=== PATIENT | male | born 1945 | race Caucasian/White ===

== ENCOUNTER → 2017-03-11 | Outpatient (CLI) | payer OTHER | LOC: FCPNEURO 21:00 | PROVIDERS: ATTEND Psychiatry & Neurology Sleep Medicine | DX: G47.31 Primary central sleep apnea (principal); G47.33 Obstructive sleep apnea (adult) (pediatric) ==

== ENCOUNTER → 2017-04-29 | Outpatient (CLI) | payer OTHER | LOC: BHFA 11:30 | PROVIDERS: ATTEND Internal Medicine Cardiovascular Disease | DX: I50.9 Heart failure, unspecified (principal) ==

== ENCOUNTER → 2018-02-19 | Outpatient (CLI) | payer OTHER | LOC: BMCIMAGING 11:37 | PROVIDERS: ATTEND Family Medicine | DX: M18.11 Unilateral primary osteoarthritis of first carpometacarpal joint, right hand (principal) ==

== ENCOUNTER 2018-08-28 12:06 | Day surgery (SDC) | payer OTHER ==
[2018-08-28] MEDS ORDERED: ceFAZolin 2 GM/DEXTROSE 100 ML IV ONE (12:16)
[2018-08-28] MEDS ORDERED: LR 1,000 ML IV ONE (12:17)
--- NOTE | 2018-08-28 12:53 | PDHPUP ---
History & Physical Update H&P update statement: This history and physical update is based on an assessment of the patient which was completed after admission or registration (within 24 hours), but prior to the surgery/procedure. H&P update: H&P reviewed & patient examined, no change in patient's condition since H&P completed
[2018-08-28] MEDS ORDERED: BUPIVACAINE 0.25% 30 ML SDV ONE (13:37)
[2018-08-28] MEDS ORDERED: BUPIVACAINE 0.5% 30 ML SDV ONE ×2 (13:39→13:49)
--- NOTE | 2018-08-28 14:23 | PDANEPAE ---
ANE History of Present Illness here for WLE melanoma ANE Past Medical History - Cardiovascular History Hx Hypertension: No Hx Arrhythmias: No Hx Chest Pain: No Hx Coronary Artery / Peripheral Vascular Disease: No Hx CHF / Valvular Disease: No Hx Palpitations: No - Pulmonary History Hx COPD: No Hx Asthma/Reactive Airway Disease: No Hx Recent Upper Respiratory Infection: No Hx Oxygen in Use at Home: No Hx Sleep Apnea: Yes Sleep Apnea Screening Result - Last Documented: Positive - Neurologic History Hx Cerebrovascular Accident: No Hx Seizures: No Hx Dementia: No - Endocrine History Hx Diabetes: No - Renal History Hx Renal Disorders: No - Liver History Hx Hepatic Disorders: No - Neurological & Psychiatric Hx Hx Neurological and Psychiatric Disorders: Yes Neurological / Psychiatric History Comment: NEUROPATHY - Cancer History Hx Cancer: Yes Cancer History Comment: SKIN CA - Congenital Disorder History Hx Congenital Disorders: No - GI History Hx Gastrointestinal Disorders: No - Other Health History Other Health History: NEG - Chronic Pain History Chronic Pain: Yes (SCOLIOSIS W/BACK PAIN,HANDS,LEGS) - Surgical History Prior Surgeries: MOHS X2. KNEE L ACL ANE Review of Systems Review of systems is: negative Review of Systems: - Exercise capacity Exercise capacity: >=4 METS METS (RN): 4 METS ANE Patient History - Allergies Allergies/Adverse Reactions: No Known Allergies Allergy (Unverified 08/24/18 13:51) - Home Medications Home Medications: Bupropion HCl 08/26/18 [Last Taken 08/28/18 07:00] Gabapentin 08/26/18 [Last Taken 08/27/18] Ibuprofen 08/26/18 [Last Taken 08/25/18] Multivitamin 08/26/18 [Last Taken 08/25/18] Propranolol HCl 08/26/18 [Last Taken 08/27/18] Zubsolv 0.7-0.18 mg Tablet Sl 08/26/18 [Last Taken 08/26/18] - NPO status NPO Status: no food or drink >8 hours NPO Since - Liquids (Date): 08/28/18 NPO Since - Liquids (Time): 11:00 NPO Since - Solids (Date): 08/28/18 NPO Since - Solids (Time): 05:00 - Smoking Hx Smoking Status: Never smoked - Family Anes Hx Family Hx Anesthesia Complications: NEG ANE Labs/Vital Signs - Vital Signs Vital Signs: reviewed preoperatively; see RN documention for details Blood Pressure: 119/70 Heart Rate: 57 Respiratory Rate: 16 O2 Sat (%): 97 Height: 172.72 cm Weight: 72.575 kg ANE Physical Exam - Airway Neck exam: FROM Mallampati Score: Class 1 - Pulmonary Pulmonary: no respiratory distress - Cardiovascular Cardiovascular: regular rate and rhythym - ASA Status ASA Status: II
[2018-08-28] MEDS ORDERED: MIDAZOLAM 2 MG/2 ML VIAL ONE (15:09)
[2018-08-28] MEDS ORDERED: PROPOFOL/EMULSION 500 MG/50 ML BOTTLE IV ONE (15:46)
[2018-08-28] MEDS ORDERED: METHYLENE BLUE 0.5% 50 MG/10 ML AMP ONE (15:55)
[2018-08-28] MEDS ORDERED: fentaNYL 100 MCG/2 ML INJ ONE (16:03)
[2018-08-28] MEDS ORDERED: LR 500 ML IV PRN (16:13)
[2018-08-28] MEDS ORDERED: NS 500 ML IV PRN (16:13)
[2018-08-28] MEDS ORDERED: HYDROCODONE/APAP 5/325 TAB PO PRN (16:13)
[2018-08-28] MEDS ORDERED: fentaNYL 100 MCG/2 ML INJ IVP PRN (16:13)
[2018-08-28] MEDS ORDERED: DEXAMETHASONE 4 MG/ML VIAL IVP PRN (16:13)
[2018-08-28] MEDS ORDERED: HYDROmorphONE/DILAUDID 2 MG/ML INJ IVP PRN (16:13)
[2018-08-28] MEDS ORDERED: ALBUTEROL 3 ML DEYVIAL IH PRN (16:13)
[2018-08-28] MEDS ORDERED: ONDANSETRON 4 MG/2 ML VIAL IVP PRN (16:13)
[2018-08-28] MEDS ORDERED: oxyCODONE IR 5 MG TAB PO PRN (16:13)
[2018-08-28] MEDS ORDERED: NALOXONE HCL 0.4 MG/ML INJ IVP PRN (16:13)
[2018-08-28] MEDS ORDERED: BACITRACIN ZINC 0.5 OZ OINTTUBE TP ONE (16:25)
--- NOTE | 2018-08-28 16:56 | POSTOPPROG ---
Post Op Note Date of Operation: 08/28/18 Surgeon: Marisol Brown Music Specialist: liborio Anesthesiologist: mike Anesthesia: GET(General Endotracheal) Pre-op Diagnosis: melanoma Post-op Diagnosis: same Indication: 73yo M with R postauricular melanoma Procedure: Wide local excision R postauricular melanoma with R submand SLN bx Findings: sentinel lymph node R submandibular Inf/Abcess present in the surg proc area at time of surgery?: No EBL: Minimal Specimen(s): Wide local excision R post-auricular [place] lymph node biopsy
--- NOTE | 2018-08-28 17:06 | POSTANESTH ---
Post Anesthetic Evaluation Cardiovascular Status: Normal, Stable Respiratory Status: Normal, Stable Level of Consciousness/Mental Status: Mildly Sleepy, Arousable Pain Control: Adequate, Prn Tx Ordered Nausea/Vomiting Control: Adequate, Prn Tx Ordered Complications Possibly Related to Anesthesia: None Noted
[2018-08-28] MEDS ORDERED: HYDROCODONE/APAP 5/325 TAB ONE (17:55)
[2018-08-28 18:13] VITALS: BP 126/73
--- NOTE | 2018-08-29 11:35 | GOP ---
[f rep st] OPERATIVE REPORT DATE OF OPERATION: 08/28/2018 SURGEON: Marisol Brown MD [employer] AGENT: Gretchen Catalan PA-C ANESTHESIA: General. ANESTHESIOLOGIST: Lobo Marino MD PREOPERATIVE DIAGNOSIS: Right postauricular malignant melanoma. POSTOPERATIVE DIAGNOSIS: Right postauricular malignant melanoma. PROCEDURE PERFORMED: 1. Wide local excision, right postauricular melanoma. 2. Right submandibular sentinel lymph node biopsy. FINDINGS: Wide local excision measured approximately 4 x 2 x 0.5 cm. SPECIMENS: 1. Right excision, short superior, long posterior. 1. [place] lymph node. 2. ESTIMATED BLOOD LOSS: Minimal. DESCRIPTION OF PROCEDURE: The patient was brought into the operating room and placed supine on the table, and general anesthesia was administered. His head was turned toward the left, and his ear and neck were prepped and draped in the usual sterile fashion. I then sewed his earlobe to his face to provide better exposure. I measured 1 cm margins around the previous biopsy site, which went to the pinna of his ear. I created an ellipse so that this would close easier. I dissected through the skin, subcutaneous tissue until I encountered the fascia. Attention was paid to avoid any superficial nerves. Dissection was both sharp and with cautery. The specimen was removed and marked (short superior, long posterior). I used a sentinel node probe. At the beginning of the case, I injected 1 cc of methylene blue underneath the lesion. Attention was then drawn to the sentinel lymph node biopsy. Due to the location of the lesion, the sentinel node was very close to it. I extended the incision and dissected through the skin and subcutaneous tissue. I did encounter a lymph node with some blue dye. I carefully dissected in this area, again using mainly sharp dissection. I placed clips where there was bleeding tissue. The node was submitted to Pathology for permanent. Deep layer closed with 3-0 Vicryl, skin closed with 3- 0 Vicryl followed by 4-0 Monocryl. Antibiotic ointment and a sterile dressing were applied. The postauricular area was closed with 4-0 Prolene. He was awakened in the operating room, extubated, transferred to PACU in stable condition. /[id number]/MODL MTDD
== END 2018-08-28 18:42 | disposition home or self-care (01) ==
LOC: FSGY 12:06
PROVIDERS: ATTEND Surgery
PROC: 0HQ2XZZ Repair Right Ear Skin, External Approach (ICD-10-PCS; principal; 2018-08-28 15:00)
PROC: 0HB2XZZ Excision of Right Ear Skin, External Approach (ICD-10-PCS; principal; 2018-08-28 15:00)
PROC: 07B00ZX Excision of Head Lymphatic, Open Approach, Diagnostic (ICD-10-PCS; principal; 2018-08-28 15:00)
PROC: 3E0W3HZ Introduction of Radioactive Substance into Lymphatics, Percutaneous Approach (ICD-10-PCS; 2018-08-28 15:00)
DX: C43.9 Malignant melanoma of skin, unspecified (principal)
CPT/HCPCS: 11644; 12052; 38500; 78195; A9520; J0690; J2250; J2704; J3010; Q9968